=== PATIENT | female | born 1980 | race Caucasian/White ===

== ENCOUNTER 2020-01-04 05:58 | Emergency (ER) | payer BC, OTHER ==
--- NOTE | 2020-01-04 06:27 | EDM.PDOC ---
ED HPI GENERAL MEDICAL PROBLEM - General Chief Complaint: General Stated Complaint: Fever, Headache Time Seen by Provider: 01/04/20 06:05 Source of Information: Reports: Patient History Limitations: Reports: No Limitations - History of Present Illness INITIAL COMMENTS - FREE TEXT/NARRATIVE: pt states onset fever, chills, body aches, sore throat while at work, [employer]. pt states she laid down on her shift break and woke up with symptoms, as soon as she realized symptoms she quarantined herself and reduce her personal contacts to the minimum. she denies SOB, abdominal pain, cough. last dose of tylenol at about 0530 when she got up from her break. Onset: Today, Sudden - Related Data Home Meds: Home Meds Albuterol [Proventil HFA] 2 puff INH Q4H PRN #1 inhaler 01/04/20 [Rx] ED ROS GENERAL - Review of Systems Review Of Systems: See Below Respiratory: Reports: No Symptoms GI/Abdominal: Reports: No Symptoms ED EXAM, GENERAL - Physical Exam Exam: See Below Exam Limited By: No Limitations General Appearance: Alert, WD/WN Respiratory/Chest: No Respiratory Distress, No Accessory Muscle Use GI/Abdominal: Normal Bowel Sounds, Non-Tender, No Distention Course - Vital Signs Last Recorded V/S: Last Vital Signs Temp 98.1 F 01/04/20 06:03 Pulse 81 01/04/20 06:03 Resp 18 01/04/20 06:03 BP 116/84 01/04/20 06:03 Pulse Ox 99 01/04/20 06:03 - Orders/Labs/Meds Orders: Active Orders 24 hr Category Date Time Status CORONAVIRUS COVID-19 RAPID [MOLEC] Stat Lab 01/04/20 06:03 Ordered Departure - Departure Time of Disposition: 06:47 Disposition: Home, Self-Care 01 Condition: Good Clinical Impression: COVID-19 - Discharge Information *PRESCRIPTION DRUG MONITORING PROGRAM REVIEWED*: No *COPY OF PRESCRIPTION DRUG MONITORING REPORT IN PATIENT KAVEH: No Sepsis Event Note (ED) - Evaluation Sepsis Screening Result: No Definite Risk - Focused Exam Vital Signs: Vital Signs Temp Pulse Resp BP Pulse Ox 01/04/20 06:03 98.1 F 81 18 116/84 99 - Problem List & Annotations (1) COVID-19 SNOMED Code(s): 627831331 Code(s): U07.1 - COVID-19 Status: Acute - Problem List Review Problem List Initiated/Reviewed/Updated: Yes - My Orders Last 24 Hours: My Active Orders 01/04/20 06:03 CORONAVIRUS COVID-19 RAPID [MOLEC] Stat - Assessment/Plan Last 24 Hours: My Active Orders 01/04/20 06:03 CORONAVIRUS COVID-19 RAPID [MOLEC] Stat Assessment:: assessment: covid 19 plan: albuterol INH at pharmacy no abx or steroids at this time as pt is likely not to benefit as her list of comorbidities is non-existant. rest, quarantine.
== END 2020-01-04 06:55 | disposition home or self-care (01) ==
LOC: LB.ED 06:45
DX: U07.1 COVID-19 (principal)
CPT/HCPCS: 99283; U0002